=== PATIENT | female | born 1950 | race Caucasian/White ===

== ENCOUNTER → 2016-10-05 | Outpatient (CLI) | payer MEDICARE, OTHER | END | disposition home or self-care (01) | LOC: LAB.O 07:07 | PROVIDERS: ATTEND Family Medicine | DX: R53.83 Other fatigue (principal); E78.00 Pure hypercholesterolemia, unspecified ==

== ENCOUNTER 2016-10-14 16:39 | Emergency (ER) | payer MEDICARE, OTHER ==
[2016-10-14] MEDS ORDERED: ONDANSETRON INJ 4 MG/2 ML VIAL IV ONE (17:51)
[2016-10-14] MEDS ORDERED: SODIUM CHLORIDE 0.9% 1000ML 1,000 ML IVS ONE (17:51)
[2016-10-14] MEDS ORDERED: KETOROLAC TROMETHAMINE INJ 30 MG/ML VIAL IV ONE (17:51)
[2016-10-14] MEDS ORDERED: SODIUM CHLORIDE 0.9% (FLUSH) 10 ML SYG IV PRN (17:51)
[2016-10-14] MEDS ORDERED: MORPHINE SULFATE INJ 10 MG/ML VIAL IV ONE (17:53)
--- NOTE | 2016-10-14 18:06 | ED.PDOC ---
History of Present Illness - General Information Source: patient Exam Limitations: no limitations - History of Present Illness Initial Comments: PT PRESENTS TO THE ED WITH COMPLAINT OF LLQ ABDOMINAL PAIN ASSOCIATED WITH CONSTIPATION. PT REPORTS THAT SHE WAS SEEN BY HER PCP TODAY AND INSTRUCTED TO COME TO THE ED FOR EVALUATION. PT REPORTS A HISTORY OF DIVERTICULOSIS. SHE DENIES FEVERS/CHILLS. Abdominal Pain Onset Location: LLQ Pain Radiation: no radiation, RLQ Quality: moderate, aching Timing/Duration: 7-24 hours Improving Factors: nothing Worsening Factors: nothing Associated Symptoms: denies symptoms <IronTarikkylee Lane - Last Filed: 10/14/16 19:07> <Enma Terrazas - Last Filed: 10/14/16 19:37> - General Chief Complaint: Abdominal Pain Stated Complaint: LLQ pain Time Seen by Provider: 10/14/16 17:51 Review of Systems - Review of Systems Constitutional: Denies: chills, fever EENTM: Denies: blurred vision, nose congestion Respiratory: Denies: cough, short of breath Cardiology: Denies: chest pain, palpitations Gastrointestinal/Abdominal: States: see HPI, abdominal pain. Denies: diarrhea, nausea Genitourinary: Denies: dysuria, frequency Musculoskeletal: Denies: back pain, muscle pain Skin: Denies: change in color, lesions Neurological: Denies: headache, numbness Endocrine: Denies: no symptoms reported Hematologic/Lymphatic: Denies: no symptoms reported <Shelia Perdueharley Lane - Last Filed: 10/14/16 19:07> Past Medical History (General) - Patient Medical History Hx Congestive Heart Failure: No Hx Diabetes: No Hx Other - free text: DIVERTICULOSIS Surgical History: tonsillectomy - Vaccination History Hx Influenza Vaccination: Yes Hx Pneumococcal Vaccination: Yes - Social History Hx Tobacco Use: No <IronTarikkylee Lane - Last Filed: 10/14/16 19:07> Family Medical History - Family History Mother Family History: Unknown Living Status: Unknown <IronTarikkylee Lane - Last Filed: 10/14/16 19:07> Physical Exam - Physical Exam General Appearance: Alert, Obvious distress, Well Developed, Well Groomed, Well Hydrated Eyes, Ears, Nose, Throat Exam: normal ENT inspection Neck: supple, normal inspection Respiratory: lungs clear, normal breath sounds, no respiratory distress Cardiovascular/Chest: regular rate, rhythm, no murmur Gastrointestinal/Abdominal: soft, no organomegaly, tenderness - LLQ ABDOMINAL TENDERNESS Extremity: non-tender, normal inspection Neurologic: alert, normal mood/affect, oriented x 3 Skin Exam: normal color, warm/dry <Clint Perdue - Last Filed: 10/14/16 19:07> Progress - Progress Progress: 10/14/16 19:[address] results with patient. Would prefer PO over IV antibiotics for her first dose. Will give Cipro 500mg and Flagyl 500mg PO and d/c home with Rx. - Results/Orders Results/Orders: Laboratory Tests 10/14/16 10/14/16 10/14/16 17:45 18:00 18:00 WBC 9.8 RBC 4.54 Hgb 13.1 Hct 39.2 MCV 86.4 MCH 28.8 MCHC 33.4 RDW 13.4 Plt Count 330 MPV 8.0 Absolute Neuts (auto) 7.40 H Absolute Lymphs (auto) 1.50 Absolute Monos (auto) 0.80 Absolute Eos (auto) 0.20 Absolute Basos (auto) 0.00 Neutrophils % 74.8 Lymphocytes % 15.3 L Monocytes % 7.9 Eosinophils % 1.6 Basophils % 0.4 Sodium 135 Potassium 3.5 L Chloride 100 L Carbon Dioxide 27 Anion Gap 11.5 L BUN 9 Creatinine 0.87 BUN/Creatinine Ratio 10.3 Random Glucose 106 H Serum Osmolality 269.2 L Calcium 9.4 Total Bilirubin 1.1 H Direct Bilirubin 0.2 Indirect Bilirubin 0.9 H AST 25 ALT 28 Alkaline Phosphatase 57 Serum Total Protein 6.7 Albumin 4.2 Urine Color Yellow Urine Appearance Clear Urine pH 6.5 Ur Specific [place] 1.010 Urine Protein Negative Urine Glucose (UA) Negative Urine Ketones Negative Urine Blood Trace-lysed H Urine Nitrite Negative Urine Bilirubin Negative Urine Urobilinogen 0.2 Ur Leukocyte Esterase Negative Urine RBC 0-1 Urine WBC 0 Ur Epithelial Cells 0 Urine Bacteria 0 - EKG/XRAY/CT CT Ordered: Yes - Acute diverticulitis of sigmoid colon per Radiologist <Enma Terrazas - Last Filed: 10/14/16 19:37> Departure <Clint Perdue - Last Filed: 10/14/16 19:07> - Departure Time of Disposition: 19:33 Diet: resume usual diet Activity: increase activity as tolerated <Enma Terrazas - Last Filed: 10/14/16 19:37> - Departure Clinical Impression: Diverticulitis Qualifiers: Diverticulitis site: large intestine Diverticulitis bleeding: without bleeding Diverticulitis complication: without perforation or abscess Qualified Code(s): K57.32 - Diverticulitis of large intestine without perforation or abscess without bleeding Disposition: Discharge to Home or Self Care Condition: Good Departure Forms: ED Discharge - Pt. Copy, Patient Portal Self Enrollment Instructions: DI for Diverticulitis Referrals: HEATH CHANDRA [Primary Care Provider] - 1-2 Weeks Prescriptions: Ciprofloxacin [Cipro] 500 mg PO BID #14 tab metroNIDAZOLE [Flagyl] 500 mg PO BID #14 tab Home Medications: Ambulatory Orders Ciprofloxacin [Cipro] 500 mg PO BID #14 tab 10/14/16 Escitalopram Oxalate [Lexapro] 20 mg PO DAILY 10/14/16 Lamotrigine [Lamictal] 200 mg PO BID 10/14/16 metroNIDAZOLE [Flagyl] 500 mg PO BID #14 tab 10/14/16
--- NOTE | 2016-10-14 19:21 | CT ---
PROCEDURE: Abdomen/Pelvis w/Contrast HISTORY: LLQ ABDOMINAL PAIN, R/O DIVERTICULITIS Indication: Same as above Comparison: 10/05/2014 . Technique: CT of the abdomen and pelvis was done with intravenous contrast. Images were obtained from the lung base to the level of the pubic symphysis in axial plane, followed by orthogonal sagittal and coronal reconstruction. Oral contrast was not given for the study. The patient was injected with contrast intravenously, without any documented immediate adverse reactions. This exam was performed according to our departmental dose-optimization program, which includes automated exposure control, adjustment of the mA and/or KV according to the patient's size and/or use of iterative reconstruction technique. FINDINGS: Images through the lung bases do not show any focal infiltrates or pleural effusions. Significant phlegmonous change surrounding the diverticula in the proximal sigmoid colon is noted suggestive of acute diverticulitis without a discrete diverticular abscess at the present time. There is small amount of free fluid in the dependent portion of the pelvis There is presence of a subcentimeter benign hepatic cyst/hemangioma in the posterior segment of the right lobe of the liver. There is presence of a benign 1.8 cm cyst/hemangioma in the spleen posterior aspect of the spleen The gallbladder, pancreas, and the bilateral adrenal glands appear unremarkable. The bilateral kidneys enhance with contrast in a normal fashion. A tiny cortical cyst is seen in the upper pole of the left kidney The urinary bladder is unremarkable . The bilateral ureters and the bilateral periureteral soft tissues and fat planes are unremarkable. The small bowel appears unremarkable, without any evidence of small bowel obstruction or bowel wall thickening. There is no CT evidence of acute appendicitis, pericecal inflammatory change or ileocecal mesenteric adenitis. The ileocecal junction appears unremarkable. The splenic and portal veins are of normal caliber, without any filling defects. There is no pathological lymphadenopathy in the retroperitoneum or in the pelvic region. There is no evidence of free air in the abdomen or the pelvic region. There is no clinically significant abdominal aortic aneurysm. There is no clinically significant inguinal or ventral hernia. The visualized lumbar spine shows multilevel degenerative change . The paravertebral soft tissues are unremarkable. The remainder of the pelvic structures are unremarkable. IMPRESSION: Significant phlegmonous change surrounding the diverticula in the proximal sigmoid colon is noted suggestive of acute diverticulitis without a discrete diverticular abscess at the present time. There is small amount of free fluid in the dependent portion of the pelvis. Location of Interpretation: Teleradiology Electronically signed by: Gagandeep Rolle MD 10/14/2016 7:20 PM CDT Workstation: [id number]
[2016-10-14] MEDS ORDERED: metroNIDAZOLE 500 MG TAB PO ONE (19:31)
[2016-10-14] MEDS ORDERED: CIPROFLOXACIN 500 MG TAB PO ONE (19:31)
[2016-10-14 19:43] VITALS: BP 157/90; TEMP 99; O2SAT 97
== END 2016-10-14 19:45 | disposition home or self-care (01) ==
LOC: ER 16:39
DX: K57.32 Diverticulitis of large intestine without perforation or abscess without bleeding (principal)
CPT/HCPCS: 36415; 74177; 80048; 80076; 81001; 85025; J1885; J2270; J2405; J7030

== ENCOUNTER → 2016-10-30 | Outpatient (CLI) | payer MEDICARE, OTHER | END | disposition home or self-care (01) | LOC: LAB.O 15:15 | PROVIDERS: ATTEND Family Medicine | DX: R79.89 Other specified abnormal findings of blood chemistry (principal) ==

== ENCOUNTER → 2016-12-28 | Outpatient (CLI) | payer MEDICARE, OTHER ==
--- NOTE | 2016-12-30 11:41 | MAM ---
EXAM DESCRIPTION: 3D Screening BILATERAL : Digital Mammography. CLINICAL HISTORY: 66 years Female SCREENING no complaints. No family history of breast cancer. Family history of benign breast biopsies. Postmenopausal. No HRT. COMPARISON: 2-D left breast diagnostic digital mammography and ultrasound 07/18/2015 and 06/20/2013. 2-D digital screening bilateral studies 03/25/2015 and 10/04/2012. No prior reports available. TECHNIQUE: Bilateral CC and MLO projection full-field images, 3-D tomosynthesis digital mammographic technique. Also bilateral synthesized CC/ MLO full-field images. CAD not utilized. FINDINGS: The breast parenchymal density pattern is: Scattered areas of fibroglandular density. No skin thickening or nipple retraction bilateral solitary microcalcifications. Coarse calcification anterior left breast. Bilateral intramammary lymph nodes. No focal, stellate mass or density, focal asymmetry , and no suspicious microcalcifications bilaterally. Stable mammograms compared to prior study, taking into account differences in mammographic technique IMPRESSION: BI-RADS CATEGORY: 2 - BENIGN FINDINGS. FOLLOW UP: Routine digital bilateral screening, one year interval from December 2017. Written communication explaining the IMPRESSION and follow-up, will be mailed to the patient and referring health care provider. According to the [employer], yearly mammograms are recommended starting at age 40 and continuing as long as a woman is in good health. Any breast change noted on a breast self-exam should be reported promptly to the patient's healthcare provider. Breast MRI is recommended for women with an approximately 20-25% or greater lifetime risk of breast cancer, including women with a strong family history of breast or ovarian cancer and women who have been treated for Hodgkin's disease. A negative mammographic report should not delay tissue diagnosis in patients with significant clinical history or physical findings. Extremely dense breast tissue limits the sensitivity of digital mammography. Electronically signed by: Gabe Lizama MD 12/30/2016 11:40 AM MANAGER OF PATIENT
== END ==
LOC: MAMMO 14:49
PROVIDERS: ATTEND Nurse Practitioner Family
DX: Z12.31 Encounter for screening mammogram for malignant neoplasm of breast (principal)
CPT/HCPCS: 77063; G0202

== ENCOUNTER → 2017-11-30 | Outpatient (CLI) | payer OTHER ==
--- NOTE | 2017-11-30 12:38 | RAD ---
EXAM DESCRIPTION: Knee,Right 2 or More Views CLINICAL HISTORY: PAIN IN RIGHT KNEE COMPARISON: None Available. TECHNIQUE/FINDINGS: AP LATERAL right knee IMPRESSION: Moderate narrowing medial compartment with marginal spurs. Minimal medial femoral shaft on the tibia. Minimal suprapatellar effusion. Superior right patellar spur. Overall bone density is decreased. No abnormal radiodense objects in the soft tissues or joint spaces. No fracture. Electronically signed by: Gabe Lizama MD 11/30/2017 12:37 PM CDT
== END ==
LOC: RAD 09:40
PROVIDERS: ATTEND Family Medicine
DX: M25.561 Pain in right knee (principal); M76.891 Other specified enthesopathies of right lower limb, excluding foot; M25.461 Effusion, right knee

== ENCOUNTER → 2017-12-03 | Outpatient (CLI) | payer OTHER | LOC: LAB.O 08:47 | PROVIDERS: ATTEND Family Medicine | DX: Z00.00 Encounter for general adult medical examination without abnormal findings (principal); E78.00 Pure hypercholesterolemia, unspecified ==

== ENCOUNTER → 2017-12-30 | Outpatient (CLI) | payer OTHER ==
--- NOTE | 2017-12-31 16:47 | MAM ---
EXAM DESCRIPTION: 3D Screening BILATERAL : Digital Mammography. CLINICAL HISTORY: 67 years Female SCREEN . No complaints. No personal or family history of breast cancer. No childbirth. Premenopausal. No HRT. Lifetime risk of developing breast cancer (Tyrer-Cuzick model)(%): 5.9. COMPARISON: Bilateral screening digital breast tomosynthesis 12/28/2016.. TECHNIQUE: Bilateral CC and MLO projection full-field images, digital tomosynthesis mammographic technique. Bilateral digital 2-D full-field MLO images. CAD not available for tomosynthesis or 2-D images. FINDINGS: The breast parenchymal density pattern is: Scattered areas of fibroglandular density. No skin thickening or nipple retraction. Bilateral solitary microcalcifications. 2 mass densities or focal asymmetries in the lower inner quadrant of the left breast middle third approximately 6 slight change since the prior study. Cm from the nipple at the 7:00 to 10:00 positions. No new focal, stellate mass or density, focal asymmetry , and no suspicious microcalcifications right breast. Taking into account, differences in mammographic technique. IMPRESSION: BI-RADS CATEGORY: 0 - INCOMPLETE- Need additional imaging evaluation. FOLLOW-UP: Recall for additional imaging: Orthogonal tomosynthesis images. Additional images if needed at the time of the diagnostic workup. Targeted left breast ultrasound if indicated by diagnostic images.. Written communication concerning the IMPRESSION and Follow-up, will be mailed to the patient and referring health care provider. Electronically signed by: Gabe Lizama MD 12/31/2017 4:45 PM TANK CREWMEMBER
== END ==
LOC: MAMMO 15:15
PROVIDERS: ATTEND Family Medicine
DX: Z12.31 Encounter for screening mammogram for malignant neoplasm of breast (principal)

== ENCOUNTER → 2018-01-10 | Outpatient (CLI) | payer OTHER ==
--- NOTE | 2018-01-10 14:52 | US ---
EXAM DESCRIPTION: Breast,Left: Ultrasound CLINICAL HISTORY: 67 yearsFemaleABNORMAL MAMMO. Focal asymmetry versus mass in the lower inner quadrant of the left breast. COMPARISON: Digital diagnostic tomosynthesis left breast on the same visit. Bilateral screening breast tomosynthesis 12/30/2017. TECHNIQUE: Transcutaneous scanning of the left breast utilizing cordoba-scale and Doppler modes. Scanning performed by the transit planning director; observation by Dr. Lizama. FINDINGS: Scanning of the lower inner quadrant of the left breast. Focus on the 7:00 to 8:00 sector 4 cm from the nipple. Mostly fatty echotexture with minimal fibroglandular tissues. Solid mass with combination circumscribed and lobulated margins at the 9:00 position 4 cm from the nipple. Taller than wide orientation measuring 4.6 mm AP and 3.8 mm transverse. Partially hypoechoic margin slightly more echogenic centrally. Mixed posterior features of enhancement and attenuation. No dominant distinct cyst. No large calcifications or parenchymal edema. No overlying skin changes or abnormal vascularity. IMPRESSION: 1. BI-RADS CATEGORY: 4 - SUSPICIOUS. SUB - CATEGORY 4A: LOW SUSPICION FOR MALIGNANCY. 2. Please refer to diagnostic digital left breast tomosynthesis examination and report on this visit. The FINDINGS and various follow-up plans were reviewed in person with the patient after the examination. Written communication explaining the IMPRESSION and FOLLOW-UP will be mailed to the patient and referring care provider. CRITICAL COMMUNICATION: The critical value was discussed directly by phone with Dr. Gabe Kemp at approximately 1425 hours, on January 10, 2018. Electronically signed by: Gabe Lizama MD 01/10/2018 2:51 PM [employer] CREWMEMBER
--- NOTE | 2018-01-10 14:59 | MAM ---
EXAM DESCRIPTION: 3D Diagnostic, Left: Digital Mammography CLINICAL HISTORY: 67 yearsFemaleABNORMAL MAMMO focal asymmetry versus mass density in the lower inner quadrant of the middle third of the left breast.. COMPARISON: Bilateral screening digital breast tomosynthesis 12/30/2017. Targeted left breast ultrasound included with this examination. No prior reports available.. TECHNIQUE: Left breast LM projection full-field images, digital mammographic tomosynthesis technique. CAD not available. FINDINGS: The breast parenchymal density pattern is: Scattered areas of fibroglandular density. No skin thickening or nipple retraction LM tomosynthesis shows a oval-shaped mass with partially spiculated margins approximately 4 to 5 cm from the nipple in the medial breast at approximately 8:00 to 8:30 position, 5 cm from the nipple. Associated with microcalcifications. There may be a second focal asymmetry medial, more superior, and slightly anterior to this oval-shaped mass. Ultrasound: Scanning of the lower inner quadrant of the left breast. Focus on the 7:00 to 8:00 sector- 4 cm from the nipple. Mostly fatty echotexture with minimal fibroglandular tissues. Solid mass with combination circumscribed and lobulated margins at the 9:00 position 4 cm from the nipple. Taller than wide orientation measuring 4.6 mm AP and 3.8 mm transverse. Partially hypoechoic margin slightly more echogenic centrally. Mixed posterior features of enhancement and attenuation. No dominant distinct cyst. No large calcifications or parenchymal edema. No overlying skin changes or abnormal vascularity. IMPRESSION: BI-RADS CATEGORY 4: SUSPICIOUS. SUB-CATEGORY 4A - LOW SUSPICION FOR MALIGNANCY. Surgical consultation and tissue diagnosis should be considered. The FINDINGS and FOLLOW-UP plan were reviewed in person with the patient following the examination. Written communication explaining the IMPRESSION and FOLLOW-UP will be mailed to the patient and referring care provider. CRITICAL COMMUNICATION: The critical value was discussed directly by phone with Dr. Gabe Kemp at approximately 1425 hours, on January 10, 2018. Electronically signed by: Gabe Lizama MD 01/10/2018 2:57 PM STORE TEAM MEMBER
== END ==
LOC: MAMMO 13:30
PROVIDERS: ATTEND Family Medicine
DX: R92.8 Other abnormal and inconclusive findings on diagnostic imaging of breast (principal)
CPT/HCPCS: 76641; 77065; G0279

== ENCOUNTER → 2018-02-01 | Outpatient (CLI) | payer OTHER ==
--- NOTE | 2018-02-01 10:20 | US ---
EXAM DESCRIPTION: Biopsy/Needle Guidance: Ultrasound. CLINICAL HISTORY: 67 years Female ABNORMAL MAMMO LEFT COMPARISON: Diagnostic ultrasound of the left breast on 01/10/2018. TECHNIQUE: The procedure was performed by Dr. Pop. Repeat ultrasound localized the lesion at the 9:00 position of the left breast 4 cm from the nipple.. Sterile preparation. Sterile ultrasound guidance during needle passes. No complications were documented. FINDINGS: Multiple images showing the echogenic core biopsy needle passing through the mass of interest and also in the adjacent soft tissues. IMPRESSION: Successful, ultrasound-guided needle core biopsy of left breast mass. Adequate core samples were obtained. Pathology examination at remote facility, results pending. Electronically signed by: Gabe Lizama MD 02/01/2018 10:19 AM [facility] ARCHEOLOGY PROFESSOR
--- NOTE | 2018-02-01 19:26 | OP ---
DATE OF PROCEDURE: 02/01/18 PREOPERATIVE DIAGNOSIS: 1. Abnormal left mammogram. POSTOPERATIVE DIAGNOSIS: 1. Abnormal left mammogram. SURGICAL PROCEDURE: 1. Sonography guided needle core biopsy left breast lesion. SURGEON: Jaime Pop M.D. SPRINKLER INSPECTOR: None. ANESTHESIA: Local infiltration of 1% Lidocaine. INDICATION FOR SURGERY: The patient is a 67 year-old female who underwent mammography and was found to have a small lesion in the upper portion of her left breast. After the risks, benefits, and alternatives to the procedure were discussed and accepted at the office, the patient was brought to the Ultrasound Suite today for sonography guided biopsy. FINDINGS AT TIME OF PROCEDURE: The lesion was identified with ultrasound and multiple passes were taken. Pathology is pending. DESCRIPTION OF PROCEDURE: After the patient was brought to the Ultrasound Suite and placed in the supine position, the lesion was identified using the ultrasound probe. The lateral breast was then prepped with Betadine and draped. Local infiltration of anesthesia was obtained with 1% Lidocaine and a stab wound was made with a #15 blade. The biopsy needle was then introduced and multiple passes were made with ultrasound guidance. The specimens were sent for pathological evaluation. The patient tolerated the procedure well. Hemostasis was obtained with pressure and then a single suture of #4-0 Prolene. Sterile pressure dressing was applied. The patient tolerated the procedure well and was discharged home with instructions that were given to her brother. #[id number] MTDD
== END ==
LOC: US 07:49
PROVIDERS: ATTEND Surgery
DX: R92.8 Other abnormal and inconclusive findings on diagnostic imaging of breast (principal)

== ENCOUNTER → 2019-01-02 | Outpatient (CLI) | payer OTHER ==
--- NOTE | 2019-01-03 12:20 | MAM ---
EXAM DESCRIPTION: 3D Diagnostic, Bilateral (accession [id number]), Breast,Left (accession [id number]): Ultrasound CLINICAL HISTORY: 68 yearsFemaleFOLLOW UP 6 months, left breast. Palpable mass posterior third upper outer quadrant left breast. Previous benign biopsy left breast. No personal or family history of breast cancer. Menarche age 10. No childbirth. Postmenopausal. No HRT Lifetime risk of developing breast cancer (Tyrer-Cuzick model)(%): 5.9. COMPARISON: Left breast diagnostic digital tomosynthesis 10 January 2018 with directed left breast ultrasound. Left breast needle core biopsy 01 February 2018. Diagnostic digital left breast tomosynthesis and directed ultrasound 05 Jul 2018 and bilateral screening digital breast tomosynthesis 30 December 2017. TECHNIQUE: Bilateral LM, MLO, and CC projection full-field images, digital tomosynthesis technique. Bilateral 2-D digital full-field images. LM, MLO, and CC projections. CAD not available. . Transcutaneous scanning of the left breast utilizing cordoba-scale and Doppler modes. Scanning performed by the vice president of recruiting ; observation by Dr. Lizama. FINDINGS: The breast parenchymal density pattern is: Scattered areas of fibroglandular density. No skin thickening or nipple retraction skin marker visualized in the posterior third of the upper-outer quadrant left breast. No mammographic abnormality. Anterior left breast mole marker. Bilateral intramammary lymph nodes and solitary microcalcifications. Right axillary lymph node. Stable nodular density with coarse calcification mid medial left breast. No new focal, stellate mass or density, focal asymmetry , and no suspicious microcalcifications bilaterally. Ultrasound: Scanning in the region of the current clinical abnormality indicated by skin marker. Also scanning prior ultrasound finding lower inner quadrant mid left breast. At the location of clinical abnormality in the upper outer quadrant, no dominant solid mass or distinct cyst or other ultrasound abnormality. Homogeneous hypoechoic mass with echogenic rim again visualized at the 8:00 position left breast 4 cm from the nipple. Not vascular. Dimensions 5.2 x 4.5 mm and nonvascular. Slightly taller than wide configuration with mixed posterior acoustic signature. Stable appearance since the prior study. No new distinct cyst, dominant solid mass, or calcifications. No overlying skin changes. IMPRESSION: Left breast nodule benign fibroadenoma or lymph node. No ultrasound abnormality at the site of clinical abnormality. Benign exam. BIRAD CATEGORY: 2 BENIGN FINDINGS. RECOMMENDATIONS: FOLLOW UP: Routine digital bilateral mammographic screening, one year interval from December 2018. Written communication explaining the IMPRESSION and follow-up, will be mailed to the patient and referring health care provider. The FINDINGS and the FOLLOW-UP plan were reviewed in person with the patient after the examination. According to the [employer], yearly mammograms are recommended starting at age 40 and continuing as long as a woman is in good health. Any breast change noted on a breast self-exam should be reported promptly to the patient's healthcare provider. Breast MRI is recommended for women with an approximately 20-25% or greater lifetime risk of breast cancer, including women with a strong family history of breast or ovarian cancer and women who have been treated for Hodgkin's disease. A negative mammographic report should not delay tissue diagnosis in patients with significant clinical history or physical findings. Extremely dense breast tissue limits the sensitivity of digital mammography. Electronically signed by: Gabe Lizama MD 01/03/2019 12:18 PM [facility]
== END | disposition home or self-care (01) ==
LOC: US 11:00
PROVIDERS: ATTEND Surgery
DX: N63.23 Unspecified lump in the left breast, lower outer quadrant (principal)
CPT/HCPCS: 76641; 77066; G0279

== ENCOUNTER → 2019-06-07 | Outpatient (CLI) | payer OTHER | LOC: LAB.O 15:08 | PROVIDERS: ATTEND Nurse Practitioner Family | DX: R30.0 Dysuria (principal) ==

== ENCOUNTER → 2020-01-25 | Outpatient (CLI) | payer OTHER ==
--- NOTE | 2020-01-26 12:42 | MAM ---
EXAM DESCRIPTION: 3D Screening BILATERAL : Digital Mammography. CLINICAL HISTORY: 69 years Female SCREENING . No complaints. No family history of breast cancer. Menarche age 11. No Childbirth. Menopause Age 46. No HRT. Benign left breast biopsy January 2018. Lifetime risk of developing breast cancer (Tyrer-Cuzick model)(%): 6.3. COMPARISON: Bilateral screening digital breast tomosynthesis December 2017. Left breast ultrasound and guided biopsy January 2018. Bilateral diagnostic digital breast tomosynthesis June 2018 and December 2018. Directed left breast ultrasound December 2018. TECHNIQUE: Bilateral CC and MLO projection full-field images, digital tomosynthesis mammographic technique. Bilateral digital 2-D full-field MLO images. CAD available for 2-D images. FINDINGS: The breast parenchymal density pattern is: Scattered areas of fibroglandular density. Axillary nodes. Solitary microcalcifications. Vascular calcifications. Minimal architectural distortion in the upper inner quadrant of the left breast at site of prior biopsy. Stable. No skin thickening or nipple retraction No new focal, stellate mass or density, focal asymmetry , and no suspicious microcalcifications bilaterally. Stable mammograms compared to prior study. Taking into account, differences in mammographic technique. IMPRESSION: Benign exam. BIRAD CATEGORY: 2 BENIGN FINDINGS. RECOMMENDATIONS: FOLLOW UP: Routine digital bilateral mammographic screening, one year interval from January 2020. Written communication explaining the IMPRESSION and follow-up, will be mailed to the patient and referring health care provider. According to the [employer], yearly mammograms are recommended starting at age 40 and continuing as long as a woman is in good health. Any breast change noted on a breast self-exam should be reported promptly to the patient's healthcare provider. Breast MRI is recommended for women with an approximately 20-25% or greater lifetime risk of breast cancer, including women with a strong family history of breast or ovarian cancer and women who have been treated for Hodgkin's disease. A negative mammographic report should not delay tissue diagnosis in patients with significant clinical history or physical findings. Extremely dense breast tissue limits the sensitivity of digital mammography. Electronically signed by: Gabe Lizama MD 01/26/2020 12:38 PM [facility]
== END ==
LOC: MAMMO 11:32
PROVIDERS: ATTEND Family Medicine
DX: Z12.31 Encounter for screening mammogram for malignant neoplasm of breast (principal)